=== PATIENT | male | born 1995 | race Two or more races ===

== ENCOUNTER 2021-06-22 15:19 | Inpatient (IN) | payer BC ==
[2021-06-22] MEDS ORDERED: BISMUTH SUBSALICYLATE 524 MG/30 ML PO PRN (18:02)
[2021-06-22] MEDS ORDERED: ONDANSETRON *ODT* 4 MG TABLET SL PRN (18:02)
[2021-06-22] MEDS ORDERED: MAGNESIUM HYDROX 2400MG/30ML ORAL SUSPENSION 30 ML CUP PO PRN (18:02)
[2021-06-22] MEDS ORDERED: MAG HYDROX/AL HYDROX/SIMETH 30 ML UNIT-DOSE CUP PO PRN (18:02)
[2021-06-22] MEDS ORDERED: NICOTINE POLACRILEX 2 MG GUM BUC PRN (18:02)
[2021-06-22] MEDS ORDERED: IBUPROFEN 400 MG TABLET (FP) PO PRN (18:02)
[2021-06-22] MEDS ORDERED: P-EPHED 60MG/TRIPROLIDI 2.5MG TABLET PO PRN (18:02)
[2021-06-22] MEDS ORDERED: ACETAMINOPHEN 325 MG TABLET (FP) PO PRN ×2 (18:02)
[2021-06-22] MEDS ORDERED: MENTHOL/PHENOL 1 EACH UD MM PRN (18:02)
[2021-06-22] MEDS ORDERED: MAGNESIUM CITRATE 300 ML BOTTLE PO PRN (18:02)
[2021-06-22] MEDS ORDERED: cloNIDine HCL 0.1 MG TABLET PO PRN (22:44)
[2021-06-22 23:11] VITALS: BMI 20.9
[2021-06-22] MEDS: hydrOXYzine PAMOATE 25 MG CAPSULE (FP) PO PRN (23:58)
[2021-06-22] MEDS: THIAMINE HCL 100 MG TABLET (FP) PO SCH (23:58)
[2021-06-22] MEDS: MELATONIN 5 MG TABLETS PO SCH (23:58)
[2021-06-23] MEDS ORDERED: cloNIDine HCL 0.1 MG TABLET PO PRN (09:43)
[2021-06-23] MEDS ORDERED: methaDONE HCL 10 MG TABLET (FOR DETOX USE ONLY) PO ONE ×2 (10:00→16:00)
[2021-06-23 10:42] LABS: HEMOGLOBIN 12.7 GM/dL (11.7-16.9); MCH 32.2 pg (25.7-33.7); MCHC 33.5 g/dl (32.0-35.9); MEAN CELL VOLUME 96.2 fl (80-96); PLATELET COUNT 222 10^3/uL (134-434); RBC 3.95 M/mm3 (4.00-5.60); RDW 13.6 % (11.9-15.9); WHITE BLOOD COUNT 7.3 K/mm3 (4.0-10.0)
[2021-06-23] MEDS: PRENATAL VITAMINS W/ FOLIC ACID TABLET (FP) PO SCH (10:43)
[2021-06-23] MEDS: METHOCARBAMOL 500 MG TABLET PO PRN ×2 (10:43→22:50)
[2021-06-23] MEDS: hydrOXYzine PAMOATE 25 MG CAPSULE (FP) PO PRN ×2 (10:44→22:50)
[2021-06-23 10:52] LABS: CALCIUM 8.7 mg/dL (8.5-10.1)
[2021-06-23 10:53] LABS: ALBUMIN 3.3 g/dl (3.4-5.0); BLOOD UREA NITROGEN 12.3 mg/dL (7-18)
[2021-06-23 10:56] LABS: CREATININE 0.8 mg/dL (0.55-1.3)
[2021-06-23 10:57] LABS: BILIRUBIN,TOTAL 0.4 mg/dL (0.2-1); TOT PROT 6.5 g/dl (6.4-8.2)
[2021-06-23] MEDS ORDERED: TRIMETHOBENZAMIDE HCL 300 MG CAPSULE PO PRN (14:00)
[2021-06-23] MEDS ORDERED: DICYCLOMINE HCL 10 MG CAPSULE PO ONE (14:02)
[2021-06-23] MEDS: MELATONIN 5 MG TABLETS PO SCH (22:49)
[2021-06-23] MEDS: THIAMINE HCL 100 MG TABLET (FP) PO SCH (22:49)
[2021-06-24] MEDS ORDERED: methaDONE HCL 10 MG TABLET (FOR DETOX USE ONLY) ONE (09:21)
[2021-06-24] MEDS: METHOCARBAMOL 500 MG TABLET PO PRN (10:37)
[2021-06-24] MEDS: hydrOXYzine PAMOATE 25 MG CAPSULE (FP) PO PRN (10:37)
[2021-06-24] MEDS: PRENATAL VITAMINS W/ FOLIC ACID TABLET (FP) PO SCH (10:37)
[2021-06-24] MEDS: THIAMINE HCL 100 MG TABLET (FP) PO SCH (22:32)
[2021-06-24] MEDS: MELATONIN 5 MG TABLETS PO SCH (22:33)
[2021-06-25] MEDS ORDERED: methaDONE HCL 10 MG TABLET (FOR DETOX USE ONLY) PO ONE (10:00)
[2021-06-25 10:08] VITALS: BP 111/70; PULSE 104; TEMP 98.1
[2021-06-25] MEDS: PRENATAL VITAMINS W/ FOLIC ACID TABLET (FP) PO SCH (10:53)
[2021-06-27] MEDS ORDERED: methaDONE HCL 10 MG TABLET (FOR DETOX USE ONLY) PO ONE (10:00)
== END 2021-06-25 09:28 | disposition left against medical advice (07) | DRG 770 ==
LOC: YASAS 15:19 → Y6N 23:21
PROVIDERS: ADMIT Allergy & Immunology; ATTEND Allergy & Immunology
PROC: HZ2ZZZZ Detoxification Services for Substance Abuse Treatment (ICD-10-PCS; principal; 2021-06-22)
DX: F11.23 Opioid dependence with withdrawal (principal); F17.210 Nicotine dependence, cigarettes, uncomplicated; Z86.16 Personal history of COVID-19
CPT/HCPCS: 36415; 80053; 85027; 86780; C9803; Q0162; U0003; U0005